=== PATIENT | female | born 1940 | race Caucasian/White ===

== ENCOUNTER 2017-04-06 16:22 | Emergency (ER) | payer OTHER, MEDICARE ==
[2017-04-06 16:28] VITALS: BP 139/89; PULSE 77; TEMP 98.4; BMI 31.6
[2017-04-06] MEDS ORDERED: predniSONE 20 MG TABLET (UD) PO ONE (17:13)
--- NOTE | 2017-04-06 17:13 | PDOC ---
History of Present Illness - General History Source: Patient - History of Present Illness Timing/Duration: other Associated Symptoms: reports: headaches. denies: cough, fever/chills, nausea/ vomiting, seizure, shortness of breath, syncope <Carson Tavera - Last Filed: 04/06/17 18:57> <Jean-Claude Victoria - Last Filed: 04/06/17 20:11> - General Chief Complaint: Weakness Stated Complaint: PCP SENT Time Seen by Provider: 04/06/17 16:43 Past History - Past Medical History Anemia: No Asthma: No Cancer: No Cardiac Disorders: Yes CVA: No COPD: No CHF: No Dementia: No Diabetes: No GI Disorders: Yes (UPPER GI BLEED-ANTRAL ULCER) Disorders: No HTN: Yes Hypercholesterolemia: Yes Liver Disease: Yes (cirrhosis non alcoholic) Seizures: No Thyroid Disease: No Other medical history: shingles. - Surgical History Abdominal Surgery: No Appendectomy: No Cardiac Surgery: No Cholecystectomy: No Lung Surgery: No Neurologic Surgery: No Orthopedic Surgery: No - Psycho/Social/Smoking Cessation Hx Anxiety: No Suicidal Ideation: No Smoking History: Never smoked Have you smoked in the past 12 months: No Hx Alcohol Use: No Drug/Substance Use Hx: No Substance Use Type: None Hx Substance Use Treatment: No <Carson Tavera - Last Filed: 04/06/17 18:57> <Jean-Claude Victoria - Last Filed: 04/06/17 20:11> - Past Medical History Allergies/Adverse Reactions: Allergies Allergy/AdvReac Type Severity Reaction Status Date / Time No Known Allergies Allergy Verified 04/06/17 16:28 Home Medications: Ambulatory Orders Hydrochlorothiazide [Hctz -] 1 tab PO DAILY 06/15/14 Lisinopril [Prinivil] 1 tab PO DAILY 06/15/14 Metoprolol Succinate [Toprol XL -] 1 tab PO DAILY 06/15/14 Paroxetine HCl [Paxil -] 10 mg PO DAILY 06/15/14 Simvastatin [Zocor -] 1 tab PO Q2D 06/15/14 Aiwis-E-Jvbslsurfasan [Beano] 1 unit PO PRN PRN 10/05/14 Polyethylene Glycol 3350 [Miralax 119 gm Btl -] 17 gm PO DAILY 10/05/14 Magnesium Oxide [Magnesium] 800 mg PO DAILY 04/06/17 Omeprazole 40 mg PO BID 04/06/17 Potassium Chloride [Klor-Con 10] 20 meq PO DAILY 04/06/17 Prednisone [Deltasone -] 10 mg PO ASDIR #16 tablet 04/06/17 Sucralfate [Carafate -] 1 gm PO BID 04/06/17 Valacyclovir HCl [Valtrex] 1,000 mg PO TID 04/06/17 Review of Systems - Review of Systems Constitutional: No: Chills, Fever HEENTM: No: Blurred Vision Respiratory: No: Cough, Shortness of Breath Cardiac (ROS): No: Chest Pain, Lightheadedness Neurological: Yes: Headache. No: Dizziness <Carson Tavera - Last Filed: 04/06/17 18:57> *Physical Exam - Vital Signs Last Vital Signs Temp Pulse Resp BP Pulse Ox 98.4 F 77 20 139/89 96 04/06/17 16:23 04/06/17 16:04/06/17 16:04/06/17 16:04/06/17 16:23 - Physical Exam General Appearance: Yes: Appropriately Dressed. No: Apparent Distress HEENT: positive: Normal Voice, Other (no conjunctival erythema or discharge). negative: Scleral Icterus (R), Scleral Icterus (L) Neck: positive: Supple Respiratory/Chest: negative: Respiratory Distress Integumentary: positive: Dry, Warm Neurologic: positive: Fully Oriented, Alert, Normal Mood/Affect, Motor Strength 5/5 (no nystagmus, L[place] intact, no drift, no ataxia), Finger to Nose, Other ( unable to raise R eyebrow w/ slight difficulty closing R eye or raising R corner of mouth, c/w [place], sensation and strength grossly intact, no ear canal lesions). negative: Disoriented <Carson Tavera - Last Filed: 04/06/17 18:57> - Vital Signs Last Vital Signs Temp Pulse Resp BP Pulse Ox 98.4 F 77 20 139/89 98 04/06/17 16:23 04/06/17 16:23 04/06/17 16:23 04/06/17 16:23 04/06/17 17:20 <Jean-Claude Victoria - Last Filed: 04/06/17 20:11> ED Treatment Course - LABORATORY CBC & Chemistry Diagram: 04/06/17 17:30 04/06/17 17:30 - RADIOLOGY Radiology Studies Ordered: Category Date Time Status HEAD CT WITHOUT CONTRAST [CT] Stat CT Scan 04/06/17 17:08 Ordered <Carson Tavera - Last Filed: 04/06/17 18:57> - LABORATORY CBC & Chemistry Diagram: 04/06/17 17:30 04/06/17 17:30 - ADDITIONAL ORDERS Additional order review: Laboratory Results 04/06/17 17:30 Sodium 141 Potassium 3.9 Chloride 104 Carbon Dioxide 27 Anion Gap 10 BUN 23 H D Creatinine 0.9 Creat Clearance w eGFR > 60 Random Glucose 103 Calcium 9.1 Total Bilirubin 0.6 D AST 45 H D ALT 41 D Alkaline Phosphatase 88 Total Protein 7.2 Albumin 3.7 04/06/17 17:30 RBC 4.48 MCV 92.3 MCHC 34.6 RDW 14.1 MPV 9.3 Neutrophils % 60.6 Lymphocytes % 25.9 Monocytes % 9.8 Eosinophils % 2.8 Basophils % 0.9 - Medications Given in the ED: ED Medications Discontinued Medications Generic Name Dose Route Start Last Admin Trade Name Freq PRN Reason Stop Dose Admin Prednisone 60 mg 04/06/17 17:13 04/06/17 17:35 Deltasone - PO 04/06/17 17:14 60 mg ONCE ONE Administration <Jean-Claude Victoria - Last Filed: 04/06/17 20:11> Medical Decision Making - Medical Decision Making 04/06/17 17:08 76 yo F yo F, cirrhosis (non-alcoholic), HLD, currently on 2nd course of valtrex for shingles to R side of face 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 States rash is healing but several days ago noticed facial asymmetry and sent to ED for evaluation. No eye pain, conjunctival erythema, tearing, discharge or photophobia See exam [place] Palsy m/l 2/2 shingles, on valtrex w/ healed facial rash, no lesion to ear canal, no e/o corneal involvement at this time -[facility] at request of PMD, though very low suspicion for CVA at this time -will give first dose prednisone in ED and discuss dispo w/ referring PMD (Dr Pilar Richey) 04/06/17 17:23 04/06/17 17:28 04/06/17 18:24 Labs wnl. CTH pending. Anticipate discharge with prednisone 60mg daily x 5 days , then taper by 10mg daily for a total length of 10 days. Already on valtrex. Will also need eye care such as artificial tears Q4H while awake and then ointment formulation at night w/ protective glasses or night patch. Should also be referred to neuro for continued evaluation 04/06/17 18:31 04/06/17 18:57 Case signed out to CHLOE Victoria pending CT and discussion w/ Pilar Richey who has not yet returned page <Carson Tavera - Last Filed: 04/06/17 18:57> - Medical Decision Making 04/06/17 20:09 Spoke with Lou Concepcion who would like patient to come in to office on Saturday. Patient should also start tapered dose of prednisone. CT- Brain: Neg. 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 Richey on Saturday morning. She would like for you to call her at 9am prior to coming to office. Take medications as prescribed. Continue your current medications as prescribed. Return if symptoms worsen or any concerns for further evaluation. Print Language: SIN[place]
[2017-04-06] MEDS ORDERED: predniSONE 20 MG TABLET (UD) ONE (17:24)
[2017-04-06 17:44] LABS: BASOPHIL 0.9 % (0-2.0); EOSINOPHIL 2.8 % (0-4.5); MCH 31.9 pg (25.7-33.7); MCHC 34.6 g/dl (32.0-36.0); MEAN CELL VOLUME 92.3 fl (80-96); MEAN PLT VOLUME 9.3 fl (7.5-11.1); NEUTROPHILS 60.6 % (42.8-82.8); PLATELET COUNT 121 K/MM3 (134-434); RDW 14.1 % (11.6-15.6); WHITE BLOOD COUNT 8.4 K/mm3 (4.0-10.0)
[2017-04-06 18:10] LABS: ALBUMIN 3.7 g/dl (3.4-5.0); ALK PHOS 88 U/L (45-117); ANION GAP 10 (8-16); BILIRUBIN,TOTAL 0.6 mg/dL (0.2-1.0); CALCIUM 9.1 mg/dL (8.5-10.1); CO2 27 mmol/L (21-32); CREATININE 0.9 mg/dL (0.55-1.02); GLUCOSE,RANDOM 103 mg/dL (74-106); SGOT/AST 45 U/L (15-37); SGPT/ALT 41 U/L (12-78); TOT PROT 7.2 g/dl (6.4-8.2)
== END 2017-04-06 20:43 | disposition home or self-care (01) ==
LOC: JER 16:22
DX: B02.21 Postherpetic geniculate ganglionitis (principal); E78.00 Pure hypercholesterolemia, unspecified; K76.89 Other specified diseases of liver
CPT/HCPCS: 36415; 70450-TC; 80053; 85025; 99282-25

== ENCOUNTER 2020-07-22 12:01 | Inpatient (IN) | payer OTHER, MEDICARE ==
[2020-07-22] MEDS ORDERED: DEXAMETHASONE SOD PHOSPHATE 10 MG/1 ML VIAL ONE (12:37)
[2020-07-22] MEDS ORDERED: DEXAMETHASONE SOD PHOSPHATE 10 MG/1 ML VIAL IVPUSH ONE (12:40)
[2020-07-22] MEDS ORDERED: SODIUM CHLORIDE 0.9% 500 ML INFUS.BAG IV ONE (12:41)
[2020-07-22] MEDS ORDERED: guaiFENesin 200 MG/10 ML 10 ML UNIT-DOSE CUPS PO ONE (12:41)
[2020-07-22 13:03] LABS: BASO % 0.7 % (0-2.0); EOS % 1.6 % (0-4.5); HEMATOCRIT 35.7 % (32.4-45.2); LYMPH % 21.6 % (8-40); MCH 29.7 pg (25.7-33.7); MCHC 33.5 g/dl (32.0-36.0); MEAN CELL VOLUME 88.6 fl (80-96); MEAN PLT VOLUME 11.8 fl (7.5-11.1); MONO % 17.6 % (3.8-10.2); NEUT % 58.5 % (42.8-82.8); PLATELET COUNT 54 K/MM3 (134-434); RBC 4.03 M/mm3 (3.60-5.2); RDW 14.1 % (11.6-15.6); WHITE BLOOD COUNT 4.6 K/mm3 (4.0-10.0)
[2020-07-22 13:05] LABS: VENOUS BASE EXCESS -1.5 mmol/L (-2-2); VENOUS PCO2 34.8 mmHg (38-52); VENOUS PH 7.423 (7.310-7.410)
[2020-07-22] MEDS ORDERED: guaiFENesin 200 MG/10 ML 10 ML UNIT-DOSE CUPS ONE (13:07)
[2020-07-22 13:10] LABS: INR 1.23 (0.83-1.09)
[2020-07-22 13:12] LABS: ACTIVATED PTT 32.9 SECONDS (25.2-36.5)
[2020-07-22 13:26] LABS: CHLORIDE 105 mmol/L (98-107); SODIUM 137 mmol/L (136-145)
[2020-07-22 13:28] LABS: CALCIUM 7.2 mg/dL (8.5-10.1)
[2020-07-22 13:29] LABS: ALBUMIN 3.3 g/dl (3.4-5.0); ANION GAP 10 MMOL/L (8-16); BLOOD UREA NITROGEN 33.9 mg/dL (7-18); CO2 23 mmol/L (21-32); GLUCOSE,RANDOM 92 mg/dL (74-106)
[2020-07-22 13:32] LABS: BILIRUBIN,TOTAL 1.3 mg/dL (0.2-1); CREATININE 1.6 mg/dL (0.55-1.3); LDH 500 U/L (84-246); SGOT/AST 84 U/L (15-37); SGPT/ALT 26 U/L (13-61); TOT PROT 6.9 g/dl (6.4-8.2)
[2020-07-22 13:35] LABS: ALK PHOS 67 U/L (45-117)
[2020-07-22 13:37] LABS: N-TERMINAL BNP 338.4 pg/ml (5-450)
[2020-07-22 14:39] LABS: PLATELET ESTIMATE DECREASED
[2020-07-22] MEDS ORDERED: SUCRALFATE 1 GM TABLET (FP) ONE (17:49)
[2020-07-22] MEDS: SUCRALFATE 1 GM TABLET (FP) PO SCH (17:51)
[2020-07-22] MEDS ORDERED: methylPREDNISolone NA SUCC 40 MG/1 ML VIAL ONE (18:03)
[2020-07-22] MEDS: methylPREDNISolone NA SUCC 40 MG/1 ML VIAL IVPUSH SCH (18:07)
[2020-07-22] MEDS ORDERED: HEPARIN NA (PORCINE) 5,000 UNITS/ML 1ML VIAL SQ SCH (22:00)
[2020-07-23] MEDS: methylPREDNISolone NA SUCC 40 MG/1 ML VIAL IVPUSH SCH ×2 (01:42→20:00)
[2020-07-23 02:41] VITALS: BMI 31.6
[2020-07-23] MEDS: SUCRALFATE 1 GM TABLET (FP) PO SCH ×2 (06:27→16:07)
[2020-07-23 06:37] LABS: BASO % 0.2 % (0-2.0); HEMATOCRIT 36.6 % (32.4-45.2); HEMOGLOBIN 12.3 GM/dL (10.7-15.3); LYMPH % 26.3 % (8-40); MCH 30.2 pg (25.7-33.7); MCHC 33.7 g/dl (32.0-36.0); MEAN CELL VOLUME 89.6 fl (80-96); MEAN PLT VOLUME 11.3 fl (7.5-11.1); MONO % 7.4 % (3.8-10.2); NEUT % 66.1 % (42.8-82.8); PLATELET COUNT 40 K/MM3 (134-434); RBC 4.08 M/mm3 (3.60-5.2); RDW 14.3 % (11.6-15.6); WHITE BLOOD COUNT 2.6 K/mm3 (4.0-10.0)
[2020-07-23 07:06] LABS: ALBUMIN 3.2 g/dl (3.4-5.0)
[2020-07-23 07:08] LABS: BILIRUBIN,DIRECT 0.4 mg/dL (0.0-0.2)
[2020-07-23 07:10] LABS: BILIRUBIN,TOTAL 1.1 mg/dL (0.2-1); TOT PROT 6.8 g/dl (6.4-8.2)
[2020-07-23] MEDS ORDERED: FUROSEMIDE 40 MG TABLET (FP) PO SCH (10:00)
[2020-07-23] MEDS ORDERED: SPIRONOLACTONE 25 MG TABLET PO SCH (10:00)
[2020-07-23] MEDS ORDERED: METOPROLOL TARTRATE 50 MG TABLET (FP) PO SCH (10:00)
[2020-07-23] MEDS: PARoxetine HCL 10 MG TABLET PO SCH (10:50)
[2020-07-23] MEDS: POTASSIUM CHLORIDE TABS 20 MEQ TABLET.ER (FP) PO SCH (10:50)
[2020-07-23] MEDS: PANTOPRAZOLE 40 MG TABLET PO SCH (10:50)
[2020-07-23 12:06] LABS: CALCIUM 7.3 mg/dL (8.5-10.1)
[2020-07-23 12:07] LABS: BLOOD UREA NITROGEN 46.9 mg/dL (7-18)
[2020-07-23 12:10] LABS: CREATININE 1.9 mg/dL (0.55-1.3)
[2020-07-23] MEDS: DEXAMETHASONE SOD PHOSPHATE 4 MG/1 ML VIAL IVPUSH SCH (13:00)
[2020-07-23] MEDS: CODEINE SO4 30 MG TABLET PO PRN ×2 (16:08→21:08)
[2020-07-24] MEDS: SUCRALFATE 1 GM TABLET (FP) PO SCH ×2 (06:06→15:43)
[2020-07-24] MEDS: CODEINE SO4 30 MG TABLET PO PRN ×2 (06:07→21:27)
[2020-07-24 08:04] LABS: ALBUMIN 2.9 g/dl (3.4-5.0); BLOOD UREA NITROGEN 53.7 mg/dL (7-18); CALCIUM 7.4 mg/dL (8.5-10.1)
[2020-07-24 08:07] LABS: CREATININE 1.6 mg/dL (0.55-1.3)
[2020-07-24 08:09] LABS: BILIRUBIN,TOTAL 0.9 mg/dL (0.2-1); TOT PROT 6.3 g/dl (6.4-8.2)
[2020-07-24 08:20] LABS: BASO % 0.1 % (0-2.0); EOS % 0.1 % (0-4.5); HEMATOCRIT 34.4 % (32.4-45.2); HEMOGLOBIN 11.5 GM/dL (10.7-15.3); LYMPH % 8.5 % (8-40); MCH 29.8 pg (25.7-33.7); MCHC 33.5 g/dl (32.0-36.0); MEAN CELL VOLUME 89.1 fl (80-96); MEAN PLT VOLUME 11.7 fl (7.5-11.1); MONO % 4.6 % (3.8-10.2); NEUT % 86.7 % (42.8-82.8); PLATELET COUNT 52 K/MM3 (134-434); RBC 3.86 M/mm3 (3.60-5.2); RDW 14.1 % (11.6-15.6); WHITE BLOOD COUNT 8.5 K/mm3 (4.0-10.0)
[2020-07-24] MEDS: DEXAMETHASONE SOD PHOSPHATE 4 MG/1 ML VIAL IVPUSH SCH (10:20)
[2020-07-24] MEDS: POTASSIUM CHLORIDE TABS 20 MEQ TABLET.ER (FP) PO SCH (10:20)
[2020-07-24] MEDS: PANTOPRAZOLE 40 MG TABLET PO SCH (10:36)
[2020-07-24] MEDS: PARoxetine HCL 10 MG TABLET PO SCH (10:36)
[2020-07-24] MEDS: LACTATED RINGERS SOLUTION 1,000 ML/1,000 ML INFUS.BAG IV SCH ×2 (15:43→19:16)
[2020-07-24 22:11] LABS: EPI CELLS 21 /uL (0-25.1); HYALINE CASTS 2 /uL (0-3.1); PH,URINE 5.5 (5.0-8.0); URINE APPEARANCE CLOUDY; URINE BACTERIA 1295 /uL (0-1359); URINE BILIRUBIN NEGATIVE (NEGATIVE); URINE COLOR YELLOW; URINE GLUCOSE (UA) NEGATIVE (NEGATIVE); URINE KETONE NEGATIVE (NEGATIVE); URINE LEUK ESTERASE 2+ (NEGATIVE); URINE NITRITE NEGATIVE (NEGATIVE); URINE PROTEIN NEGATIVE (NEGATIVE); URINE RBC 9 /uL (0-23.9); URINE UROBILINOGEN 0.2 mg/dL (0.2-1.0); URINE WBC 166 /uL (0-25.8)
[2020-07-25] MEDS: CODEINE SO4 30 MG TABLET PO PRN ×2 (06:04→16:31)
[2020-07-25] MEDS: SUCRALFATE 1 GM TABLET (FP) PO SCH ×2 (06:04→15:30)
[2020-07-25 07:23] LABS: BASO % 0.2 % (0-2.0); HEMATOCRIT 32.9 % (32.4-45.2); HEMOGLOBIN 10.9 GM/dL (10.7-15.3); LYMPH % 5.2 % (8-40); MCH 29.7 pg (25.7-33.7); MCHC 33.2 g/dl (32.0-36.0); MEAN CELL VOLUME 89.4 fl (80-96); MEAN PLT VOLUME 11.5 fl (7.5-11.1); NEUT % 88.6 % (42.8-82.8); PLATELET COUNT 54 K/MM3 (134-434); RBC 3.68 M/mm3 (3.60-5.2); RDW 14.3 % (11.6-15.6)
[2020-07-25 07:34] LABS: CALCIUM 7.4 mg/dL (8.5-10.1)
[2020-07-25 07:35] LABS: ALBUMIN 2.9 g/dl (3.4-5.0); BLOOD UREA NITROGEN 44.6 mg/dL (7-18)
[2020-07-25 07:38] LABS: CREATININE 1.3 mg/dL (0.55-1.3)
[2020-07-25 07:39] LABS: TOT PROT 6.1 g/dl (6.4-8.2)
[2020-07-25] MEDS: PARoxetine HCL 10 MG TABLET PO SCH (10:10)
[2020-07-25] MEDS: POTASSIUM CHLORIDE TABS 20 MEQ TABLET.ER (FP) PO SCH (10:10)
[2020-07-25] MEDS: PANTOPRAZOLE 40 MG TABLET PO SCH (10:10)
[2020-07-25] MEDS: DEXAMETHASONE SOD PHOSPHATE 4 MG/1 ML VIAL IVPUSH SCH (10:11)
[2020-07-25] MEDS: LACTATED RINGERS SOLUTION 1,000 ML/1,000 ML INFUS.BAG IV SCH (13:21)
[2020-07-26] MEDS: LACTATED RINGERS SOLUTION 1,000 ML/1,000 ML INFUS.BAG IV SCH ×2 (02:43→18:12)
[2020-07-26] MEDS ORDERED: PT OWN MED DRAWER 7, Y5N ONE (04:53)
[2020-07-26] MEDS: SUCRALFATE 1 GM TABLET (FP) PO SCH ×2 (06:09→16:51)
[2020-07-26] MEDS: CODEINE SO4 30 MG TABLET PO PRN ×2 (06:09→21:47)
[2020-07-26 07:46] LABS: HEMATOCRIT 32.2 % (32.4-45.2); LYMPH % 9.6 % (8-40); MCH 30.2 pg (25.7-33.7); MCHC 34.1 g/dl (32.0-36.0); MEAN CELL VOLUME 88.8 fl (80-96); MEAN PLT VOLUME 10.5 fl (7.5-11.1); MONO % 7.1 % (3.8-10.2); NEUT % 83.3 % (42.8-82.8); PLATELET COUNT 56 K/MM3 (134-434); RBC 3.63 M/mm3 (3.60-5.2); RDW 13.9 % (11.6-15.6); WHITE BLOOD COUNT 4.6 K/mm3 (4.0-10.0)
[2020-07-26 08:23] LABS: ALBUMIN 2.8 g/dl (3.4-5.0); BLOOD UREA NITROGEN 30.5 mg/dL (7-18); CALCIUM 7.7 mg/dL (8.5-10.1)
[2020-07-26 08:24] LABS: MAGNESIUM 1.7 mg/dL (1.8-2.4)
[2020-07-26 08:27] LABS: PHOSPHOROUS 2.1 mg/dL (2.5-4.9); TOT PROT 5.9 g/dl (6.4-8.2)
[2020-07-26 08:28] LABS: BILIRUBIN,TOTAL 0.7 mg/dL (0.2-1)
[2020-07-26] MEDS: PANTOPRAZOLE 40 MG TABLET PO SCH (10:16)
[2020-07-26] MEDS: POTASSIUM CHLORIDE TABS 20 MEQ TABLET.ER (FP) PO SCH (10:16)
[2020-07-26] MEDS: PARoxetine HCL 10 MG TABLET PO SCH (10:17)
[2020-07-26] MEDS: DEXAMETHASONE SOD PHOSPHATE 4 MG/1 ML VIAL IVPUSH SCH (10:17)
[2020-07-27] MEDS: CODEINE SO4 30 MG TABLET PO PRN ×2 (05:59→14:06)
[2020-07-27] MEDS: SUCRALFATE 1 GM TABLET (FP) PO SCH ×2 (06:03→18:29)
[2020-07-27 07:21] LABS: BASO % 0.1 % (0-2.0); HEMATOCRIT 31.6 % (32.4-45.2); HEMOGLOBIN 10.8 GM/dL (10.7-15.3); LYMPH % 9.9 % (8-40); MCH 30.2 pg (25.7-33.7); MCHC 34.1 g/dl (32.0-36.0); MEAN CELL VOLUME 88.6 fl (80-96); MEAN PLT VOLUME 10.1 fl (7.5-11.1); MONO % 9.1 % (3.8-10.2); NEUT % 80.9 % (42.8-82.8); PLATELET COUNT 56 K/MM3 (134-434); RBC 3.57 M/mm3 (3.60-5.2); RDW 13.9 % (11.6-15.6); WHITE BLOOD COUNT 4.2 K/mm3 (4.0-10.0)
[2020-07-27 07:43] LABS: CALCIUM 7.9 mg/dL (8.5-10.1)
[2020-07-27 07:44] LABS: ALBUMIN 2.6 g/dl (3.4-5.0); BLOOD UREA NITROGEN 26.2 mg/dL (7-18)
[2020-07-27 07:49] LABS: TOT PROT 5.6 g/dl (6.4-8.2)
[2020-07-27] MEDS: PANTOPRAZOLE 40 MG TABLET PO SCH (10:06)
[2020-07-27] MEDS: DEXAMETHASONE SOD PHOSPHATE 4 MG/1 ML VIAL IVPUSH SCH (10:06)
[2020-07-27] MEDS: PARoxetine HCL 10 MG TABLET PO SCH (10:06)
[2020-07-27] MEDS: POTASSIUM CHLORIDE TABS 20 MEQ TABLET.ER (FP) PO SCH (10:06)
[2020-07-27] MEDS ORDERED: PT OWN MED DRAWER 7, Y5N ONE (22:52)
[2020-07-28] MEDS: CODEINE SO4 30 MG TABLET PO PRN ×4 (01:06→22:29)
[2020-07-28] MEDS ORDERED: PT OWN MED DRAWER 7, Y5N ONE (05:59)
[2020-07-28 08:17] LABS: HEMATOCRIT 33.9 % (32.4-45.2); HEMOGLOBIN 11.2 GM/dL (10.7-15.3); MCH 29.5 pg (25.7-33.7); MCHC 32.9 g/dl (32.0-36.0); MEAN CELL VOLUME 89.7 fl (80-96); RBC 3.78 M/mm3 (3.60-5.2); WHITE BLOOD COUNT 5.3 K/mm3 (4.0-10.0)
[2020-07-28 08:18] LABS: BASO % 0.2 % (0-2.0); EOS % 0.1 % (0-4.5); LYMPH % 9.9 % (8-40); MEAN PLT VOLUME 9.8 fl (7.5-11.1); MONO % 11.4 % (3.8-10.2); NEUT % 78.4 % (42.8-82.8); PLATELET COUNT 70 K/MM3 (134-434); RDW 14.4 % (11.6-15.6)
[2020-07-28 08:20] LABS: CALCIUM 8.3 mg/dL (8.5-10.1)
[2020-07-28 08:24] LABS: CREATININE 0.9 mg/dL (0.55-1.3)
[2020-07-28] MEDS: SUCRALFATE 1 GM TABLET (FP) PO SCH ×2 (09:26→16:55)
[2020-07-28] MEDS: PARoxetine HCL 10 MG TABLET PO SCH (10:05)
[2020-07-28] MEDS: DEXAMETHASONE SOD PHOSPHATE 4 MG/1 ML VIAL IVPUSH SCH (10:05)
[2020-07-28] MEDS: POTASSIUM CHLORIDE TABS 20 MEQ TABLET.ER (FP) PO SCH (10:05)
[2020-07-28] MEDS: PANTOPRAZOLE 40 MG TABLET PO SCH (10:05)
[2020-07-28] MEDS ORDERED: POLYETHYLENE GLYCOL 3350 119 GM BTL PO PRN (12:43)
[2020-07-28] MEDS ORDERED: ALBUTEROL SO4 HFA INHALER IH PRN (12:43)
[2020-07-28] MEDS: HEPARIN NA (PORCINE) 5,000 UNITS/ML 1ML VIAL SQ SCH (22:29)
[2020-07-29] MEDS ORDERED: PT OWN MED DRAWER 7, Y5N ONE (06:22)
[2020-07-29] MEDS: SUCRALFATE 1 GM TABLET (FP) PO SCH ×2 (06:23→17:08)
[2020-07-29 08:06] LABS: EOS % 0.1 % (0-4.5); HEMATOCRIT 34.7 % (32.4-45.2); HEMOGLOBIN 11.9 GM/dL (10.7-15.3); LYMPH % 9.5 % (8-40); MCH 30.1 pg (25.7-33.7); MCHC 34.4 g/dl (32.0-36.0); MEAN CELL VOLUME 87.4 fl (80-96); MEAN PLT VOLUME 9.4 fl (7.5-11.1); MONO % 11.2 % (3.8-10.2); NEUT % 79.2 % (42.8-82.8); PLATELET COUNT 73 K/MM3 (134-434); RBC 3.97 M/mm3 (3.60-5.2); RDW 13.9 % (11.6-15.6)
[2020-07-29 08:24] LABS: ALBUMIN 2.6 g/dl (3.4-5.0); BLOOD UREA NITROGEN 27.5 mg/dL (7-18); CALCIUM 8.6 mg/dL (8.5-10.1)
[2020-07-29 08:29] LABS: BILIRUBIN,TOTAL 0.7 mg/dL (0.2-1)
[2020-07-29] MEDS: DEXAMETHASONE SOD PHOSPHATE 4 MG/1 ML VIAL IVPUSH SCH (09:45)
[2020-07-29] MEDS: CODEINE SO4 30 MG TABLET PO PRN ×2 (09:46→21:58)
[2020-07-29] MEDS: HEPARIN NA (PORCINE) 5,000 UNITS/ML 1ML VIAL SQ SCH ×2 (09:46→21:05)
[2020-07-29] MEDS: POTASSIUM CHLORIDE TABS 20 MEQ TABLET.ER (FP) PO SCH (09:46)
[2020-07-29] MEDS: PANTOPRAZOLE 40 MG TABLET PO SCH (09:46)
[2020-07-29] MEDS: PARoxetine HCL 10 MG TABLET PO SCH (09:47)
[2020-07-29] MEDS: LISINOPRIL 20 MG TABLET PO SCH (17:08)
[2020-07-29] MEDS: guaiFENesin 200 MG/10 ML 10 ML UNIT-DOSE CUPS PO PRN (17:20)
[2020-07-30] MEDS: guaiFENesin 200 MG/10 ML 10 ML UNIT-DOSE CUPS PO PRN ×3 (05:56→21:16)
[2020-07-30] MEDS: SUCRALFATE 1 GM TABLET (FP) PO SCH ×2 (06:01→17:07)
[2020-07-30 08:28] LABS: BASO % 0.1 % (0-2.0); EOS % 0.1 % (0-4.5); HEMATOCRIT 33.4 % (32.4-45.2); HEMOGLOBIN 11.1 GM/dL (10.7-15.3); LYMPH % 10.5 % (8-40); MCH 29.5 pg (25.7-33.7); MCHC 33.4 g/dl (32.0-36.0); MEAN CELL VOLUME 88.5 fl (80-96); MEAN PLT VOLUME 9.9 fl (7.5-11.1); MONO % 10.8 % (3.8-10.2); NEUT % 78.5 % (42.8-82.8); PLATELET COUNT 73 K/MM3 (134-434); RBC 3.77 M/mm3 (3.60-5.2); WHITE BLOOD COUNT 4.8 K/mm3 (4.0-10.0)
[2020-07-30 08:41] LABS: CALCIUM 8.5 mg/dL (8.5-10.1)
[2020-07-30 08:42] LABS: BLOOD UREA NITROGEN 26.2 mg/dL (7-18)
[2020-07-30] MEDS: PANTOPRAZOLE 40 MG TABLET PO SCH (09:44)
[2020-07-30] MEDS: PARoxetine HCL 10 MG TABLET PO SCH (09:44)
[2020-07-30] MEDS: LISINOPRIL 20 MG TABLET PO SCH (09:44)
[2020-07-30] MEDS: HEPARIN NA (PORCINE) 5,000 UNITS/ML 1ML VIAL SQ SCH ×2 (09:44→21:15)
[2020-07-30] MEDS: DEXAMETHASONE SOD PHOSPHATE 4 MG/1 ML VIAL IVPUSH SCH (09:44)
[2020-07-30] MEDS: CODEINE SO4 30 MG TABLET PO PRN ×2 (09:45→17:53)
[2020-07-30] MEDS: metoPROLOL SUCCINATE 25 MG TAB.SR.24H (FP) PO SCH (09:47)
[2020-07-30] MEDS: SPIRONOLACTONE 25 MG TABLET PO SCH (09:48)
[2020-07-30 10:55] LABS: ANISOCYTOSIS 0; HELMET CELLS 0; HOWELL-JOLLY BODIES 0; MACROCYTOSIS 0; OVALOCYTE 0; PLATELET ESTIMATE DECREASED; ROULEAU 0; SICKELED CELLS 0; TARGET CELLS 0; TEAR DROP CELLS 0; TOXIC GRANULATION 0
[2020-07-31] MEDS ORDERED: PT OWN MED DRAWER 7, Y5N ONE (05:50)
[2020-07-31] MEDS: SUCRALFATE 1 GM TABLET (FP) PO SCH ×2 (06:09→17:03)
[2020-07-31 09:09] LABS: BASO % 0.2 % (0-2.0); EOS % 0.2 % (0-4.5); HEMATOCRIT 34.2 % (32.4-45.2); HEMOGLOBIN 11.5 GM/dL (10.7-15.3); LYMPH % 13.2 % (8-40); MCH 29.9 pg (25.7-33.7); MCHC 33.8 g/dl (32.0-36.0); MEAN CELL VOLUME 88.6 fl (80-96); MEAN PLT VOLUME 9.4 fl (7.5-11.1); MONO % 8.4 % (3.8-10.2); PLATELET COUNT 75 K/MM3 (134-434); RBC 3.86 M/mm3 (3.60-5.2); WHITE BLOOD COUNT 6.1 K/mm3 (4.0-10.0)
[2020-07-31 09:12] LABS: CALCIUM 8.3 mg/dL (8.5-10.1)
[2020-07-31 09:13] LABS: ALBUMIN 2.5 g/dl (3.4-5.0); BLOOD UREA NITROGEN 29.5 mg/dL (7-18)
[2020-07-31 09:16] LABS: CREATININE 0.9 mg/dL (0.55-1.3)
[2020-07-31 09:18] LABS: TOT PROT 5.9 g/dl (6.4-8.2)
[2020-07-31] MEDS: DEXAMETHASONE SOD PHOSPHATE 4 MG/1 ML VIAL IVPUSH SCH (09:37)
[2020-07-31] MEDS: CODEINE SO4 30 MG TABLET PO PRN ×2 (09:37→22:16)
[2020-07-31] MEDS: PANTOPRAZOLE 40 MG TABLET PO SCH (09:38)
[2020-07-31] MEDS: HEPARIN NA (PORCINE) 5,000 UNITS/ML 1ML VIAL SQ SCH ×2 (09:38→22:16)
[2020-07-31] MEDS: PARoxetine HCL 10 MG TABLET PO SCH (09:38)
[2020-07-31] MEDS: SPIRONOLACTONE 25 MG TABLET PO SCH (09:38)
[2020-07-31] MEDS: LISINOPRIL 20 MG TABLET PO SCH (09:38)
[2020-07-31] MEDS: metoPROLOL SUCCINATE 25 MG TAB.SR.24H (FP) PO SCH (09:38)
[2020-07-31 10:15] LABS: ANISOCYTOSIS 0; MACROCYTOSIS 0; PLATELET ESTIMATE DECREASED
[2020-07-31] MEDS: guaiFENesin 200 MG/10 ML 10 ML UNIT-DOSE CUPS PO PRN (22:16)
[2020-08-01] MEDS ORDERED: PT OWN MED DRAWER 7, Y5N ONE (06:01)
[2020-08-01] MEDS: SUCRALFATE 1 GM TABLET (FP) PO SCH (06:14)
[2020-08-01 07:02] VITALS: BP 153/71; PULSE 60; TEMP 97.5
[2020-08-01] MEDS: HEPARIN NA (PORCINE) 5,000 UNITS/ML 1ML VIAL SQ SCH (11:00)
[2020-08-01] MEDS: SPIRONOLACTONE 25 MG TABLET PO SCH (11:01)
[2020-08-01] MEDS: PARoxetine HCL 10 MG TABLET PO SCH (11:01)
[2020-08-01] MEDS: metoPROLOL SUCCINATE 25 MG TAB.SR.24H (FP) PO SCH (11:01)
[2020-08-01] MEDS: DEXAMETHASONE SOD PHOSPHATE 4 MG/1 ML VIAL IVPUSH SCH (11:01)
[2020-08-01] MEDS: LISINOPRIL 20 MG TABLET PO SCH (11:01)
[2020-08-01] MEDS: PANTOPRAZOLE 40 MG TABLET PO SCH (11:01)
== END 2020-08-01 16:40 | DRG 177 ==
LOC: JER 12:01 → JERBED 12:45 → J7W 23:05
PROVIDERS: ADMIT Internal Medicine; ATTEND Internal Medicine
PROC: XW13325 Transfusion of Convalescent Plasma (Nonautologous) into Peripheral Vein, Percutaneous Approach, New Technology Group 5 (ICD-10-PCS; principal; 2020-07-23)
DX: U07.1 COVID-19 (principal); J96.02 Acute respiratory failure with hypercapnia; J12.89 Other viral pneumonia; J96.01 Acute respiratory failure with hypoxia; N17.9 Acute kidney failure, unspecified; I11.0 Hypertensive heart disease with heart failure; I50.9 Heart failure, unspecified; E78.5 Hyperlipidemia, unspecified; E86.0 Dehydration; K74.60 Unspecified cirrhosis of liver; D69.6 Thrombocytopenia, unspecified; E86.1 Hypovolemia; K75.81 Nonalcoholic steatohepatitis (NASH)
CPT/HCPCS: 36415; 36430; 71045-TC-FY; 80048; 80053; 80076; 81003; 82728; 82803; 83605; 83615; 83735; 83880; 84100; 84484; 85025; 85379; 85610; 85730; 86140; 86850; 86900; 86901; 87040; 87804; 93005; 93010; 94761; 97116-GP; 97161-GP; 99285-25; C9803; J1100; J1644; P9017; U0003

== ENCOUNTER 2020-11-15 09:08 | Inpatient (IN) | payer OTHER, MEDICARE ==
[2020-11-15] MEDS ORDERED: LIDOCAINE 5% TOPICAL PATCH TP ONE (10:16)
[2020-11-15] MEDS ORDERED: LIDOCAINE 5% TOPICAL PATCH ONE (10:36)
[2020-11-15] MEDS ORDERED: ALBUTEROL SO4 HFA INHALER IH PRN (11:46)
[2020-11-15] MEDS ORDERED: POLYETHYLENE GLYCOL 3350 119 GM BTL PO PRN (11:46)
[2020-11-15 12:36] LABS: BASO % 0.4 % (0-2.0); EOS % 0.9 % (0-4.5); HEMATOCRIT 31.4 % (32.4-45.2); HEMOGLOBIN 10.3 GM/dL (10.7-15.3); LYMPH % 15.9 % (8-40); MCHC 32.7 g/dl (32.0-36.0); MEAN CELL VOLUME 85.6 fl (80-96); MEAN PLT VOLUME 9.5 fl (7.5-11.1); MONO % 10.4 % (3.8-10.2); NEUT % 72.4 % (42.8-82.8); PLATELET COUNT 88 K/MM3 (134-434); RBC 3.67 M/mm3 (3.60-5.2); WHITE BLOOD COUNT 4.9 K/mm3 (4.0-10.0)
[2020-11-15 12:42] LABS: INR 1.23 (0.83-1.09)
[2020-11-15 12:44] LABS: ACTIVATED PTT 31.6 SECONDS (25.2-36.5)
[2020-11-15 12:56] LABS: CALCIUM 8.9 mg/dL (8.5-10.1)
[2020-11-15 12:57] LABS: ALBUMIN 3.2 g/dl (3.4-5.0)
[2020-11-15 13:00] LABS: CREATININE 1.2 mg/dL (0.55-1.3)
[2020-11-15 13:01] LABS: BILIRUBIN,TOTAL 1.3 mg/dL (0.2-1)
[2020-11-15 13:02] LABS: TOT PROT 6.7 g/dl (6.4-8.2)
[2020-11-15 15:55] VITALS: BMI 31.1
[2020-11-15 18:57] LABS: URINE APPEARANCE CLEAR; URINE BILIRUBIN NEGATIVE (NEGATIVE); URINE COLOR YELLOW; URINE GLUCOSE (UA) NEGATIVE (NEGATIVE); URINE KETONE NEGATIVE (NEGATIVE); URINE LEUK ESTERASE NEGATIVE (NEGATIVE); URINE NITRITE NEGATIVE (NEGATIVE); URINE PROTEIN NEGATIVE (NEGATIVE); URINE UROBILINOGEN 0.2 mg/dL (0.2-1.0)
[2020-11-15] MEDS: ACETAMINOPHEN 325 MG TABLET (FP) PO PRN (20:12)
[2020-11-15] MEDS: HEPARIN NA (PORCINE) 5,000 UNITS/ML 1ML VIAL SQ SCH (21:05)
[2020-11-15] MEDS: ATORVASTATIN CA 10 MG TABLET (FP) PO SCH (21:05)
[2020-11-15] MEDS ORDERED: LIDOCAINE PATCH REMOVAL MC SCH (22:00)
[2020-11-16] MEDS ORDERED: PT OWN MED DRAWER 7, Y5N ONE (11:01)
[2020-11-16] MEDS: SPIRONOLACTONE 25 MG TABLET PO SCH (11:06)
[2020-11-16] MEDS: LISINOPRIL 20 MG TABLET PO SCH (11:07)
[2020-11-16] MEDS: PANTOPRAZOLE 40 MG TABLET PO SCH (11:07)
[2020-11-16] MEDS: HEPARIN NA (PORCINE) 5,000 UNITS/ML 1ML VIAL SQ SCH ×2 (11:07→22:30)
[2020-11-16] MEDS: PARoxetine HCL 10 MG TABLET PO SCH (11:07)
[2020-11-16] MEDS: ACETAMINOPHEN 325 MG TABLET (FP) PO PRN ×2 (12:36→22:31)
[2020-11-16] MEDS: traMADol HCL 50 MG TABLET PO PRN (17:37)
[2020-11-16] MEDS: ATORVASTATIN CA 10 MG TABLET (FP) PO SCH (22:30)
[2020-11-17] MEDS: traMADol HCL 50 MG TABLET PO PRN ×3 (05:33→22:26)
[2020-11-17] MEDS: HEPARIN NA (PORCINE) 5,000 UNITS/ML 1ML VIAL SQ SCH ×2 (10:14→22:18)
[2020-11-17] MEDS: PARoxetine HCL 10 MG TABLET PO SCH (10:15)
[2020-11-17] MEDS: LISINOPRIL 20 MG TABLET PO SCH (10:15)
[2020-11-17] MEDS: SPIRONOLACTONE 25 MG TABLET PO SCH (10:15)
[2020-11-17] MEDS: PANTOPRAZOLE 40 MG TABLET PO SCH (10:15)
[2020-11-17] MEDS: ACETAMINOPHEN 325 MG TABLET (FP) PO PRN ×2 (10:27→19:15)
[2020-11-17] MEDS: ATORVASTATIN CA 10 MG TABLET (FP) PO SCH (22:17)
[2020-11-18] MEDS: ACETAMINOPHEN 325 MG TABLET (FP) PO PRN ×4 (01:54→21:18)
[2020-11-18] MEDS: LISINOPRIL 20 MG TABLET PO SCH (09:27)
[2020-11-18] MEDS: traMADol HCL 50 MG TABLET PO PRN ×2 (09:27→18:43)
[2020-11-18] MEDS: SPIRONOLACTONE 25 MG TABLET PO SCH (09:27)
[2020-11-18] MEDS: HEPARIN NA (PORCINE) 5,000 UNITS/ML 1ML VIAL SQ SCH ×2 (09:27→21:18)
[2020-11-18] MEDS: PANTOPRAZOLE 40 MG TABLET PO SCH (09:27)
[2020-11-18] MEDS: PARoxetine HCL 10 MG TABLET PO SCH (09:27)
[2020-11-18] MEDS: ATORVASTATIN CA 10 MG TABLET (FP) PO SCH (21:18)
[2020-11-19] MEDS: ACETAMINOPHEN 325 MG TABLET (FP) PO PRN ×2 (05:20→13:13)
[2020-11-19] MEDS: traMADol HCL 50 MG TABLET PO PRN (08:32)
[2020-11-19] MEDS: SPIRONOLACTONE 25 MG TABLET PO SCH (10:41)
[2020-11-19] MEDS: PANTOPRAZOLE 40 MG TABLET PO SCH (10:41)
[2020-11-19] MEDS: PARoxetine HCL 10 MG TABLET PO SCH (10:41)
[2020-11-19] MEDS: LISINOPRIL 20 MG TABLET PO SCH (10:41)
[2020-11-19] MEDS: HEPARIN NA (PORCINE) 5,000 UNITS/ML 1ML VIAL SQ SCH (10:42)
[2020-11-19 13:16] VITALS: PULSE 76
[2020-11-19 15:17] VITALS: BP 116/57; TEMP 98.3
== END 2020-11-19 16:37 | DRG 536 ==
LOC: JER 09:08 → JERBED 11:12 → J8W 15:20
PROVIDERS: ADMIT Internal Medicine; ATTEND Internal Medicine
DX: S32.512A Fracture of superior rim of left pubis, initial encounter for closed fracture (principal); S32.592A Other specified fracture of left pubis, initial encounter for closed fracture; S70.02XA Contusion of left hip, initial encounter; S76.012A Strain of muscle, fascia and tendon of left hip, initial encounter; E78.5 Hyperlipidemia, unspecified; K74.60 Unspecified cirrhosis of liver; I11.0 Hypertensive heart disease with heart failure; I50.9 Heart failure, unspecified; W18.30XA Fall on same level, unspecified, initial encounter; Z87.11 Personal history of peptic ulcer disease
CPT/HCPCS: 36415; 71045-TC-FY; 72192-TC; 73523-TC-FY; 80053; 81003; 85025; 85610; 85730; 87086; 93005; 93010; 97116-GP; 97162-GP; 99285-25; C9803; J1644; U0003; U0005

== ENCOUNTER 2022-08-12 09:40 | Inpatient (IN) | payer OTHER, MEDICARE ==
[2022-08-12 09:56] VITALS: BMI 26.5
[2022-08-12 11:59] LABS: INR 1.31 (0.83-1.09); PROTHROMBIN TIME (PATIENT) 15.1 SEC (9.7-13.0)
[2022-08-12 12:01] LABS: URINE APPEARANCE CLEAR; URINE BILIRUBIN NEGATIVE (NEGATIVE); URINE COLOR YELLOW; URINE GLUCOSE (UA) NEGATIVE (NEGATIVE); URINE KETONE NEGATIVE (NEGATIVE); URINE LEUK ESTERASE NEGATIVE (NEGATIVE); URINE NITRITE NEGATIVE (NEGATIVE); URINE PROTEIN NEGATIVE (NEGATIVE)
[2022-08-12 12:02] LABS: ACTIVATED PTT 31.6 SECONDS (25.2-36.5)
[2022-08-12 12:03] LABS: BASO % 1.4 % (0-2.0); EOS % 2.3 % (0-4.5); HEMATOCRIT 31.5 % (32.4-45.2); HEMOGLOBIN 10.4 GM/dL (10.7-15.3); MCH 28.1 pg (25.7-33.7); MEAN CELL VOLUME 85.1 fl (80-96); MEAN PLT VOLUME 9.2 fl (7.5-11.1); MONO % 7.5 % (3.8-10.2); NEUT % 71.8 % (42.8-82.8); PLATELET COUNT 98 10^3/uL (134-434); RDW 14.4 % (11.6-15.6)
[2022-08-12 12:10] LABS: ALBUMIN 3.5 g/dl (3.4-5.0); BLOOD UREA NITROGEN 22.9 mg/dL (7-18); CALCIUM 8.8 mg/dL (8.5-10.1); MAGNESIUM 1.6 mg/dL (1.8-2.4)
[2022-08-12 12:13] LABS: CREATININE 1.1 mg/dL (0.55-1.3)
[2022-08-12 12:15] LABS: BILIRUBIN,TOTAL 1.4 mg/dL (0.2-1); TOT PROT 7.2 g/dl (6.4-8.2)
[2022-08-12 12:18] LABS: N-TERMINAL BNP 812.5 pg/ml (5-450)
[2022-08-12] MEDS ORDERED: ACETAMINOPHEN 325 MG TABLET (FP) PO PRN (15:55)
[2022-08-12] MEDS ORDERED: ALBUTEROL SO4 HFA INHALER IH PRN (15:55)
[2022-08-12] MEDS ORDERED: POLYETHYLENE GLYCOL (HEALTHYLAX) 3350 17 GM PACKET PO PRN (15:55)
[2022-08-12] MEDS ORDERED: SUCRALFATE 1 GM TABLET (FP) ONE (18:01)
[2022-08-12] MEDS: SUCRALFATE 1 GM TABLET (FP) PO SCH (18:21)
[2022-08-12] MEDS ORDERED: HEPARIN NA (PORCINE) 5,000 UNITS/ML 1ML VIAL SQ SCH (22:00)
[2022-08-12] MEDS ORDERED: HEPARIN NA (PORCINE) 5,000 UNITS/ML 1ML VIAL ONE (23:51)
[2022-08-12] MEDS ORDERED: ATORVASTATIN CA 10 MG TABLET (FP) ONE (23:52)
[2022-08-13] MEDS ORDERED: SUCRALFATE 1 GM TABLET (FP) ONE ×2 (07:47→13:09)
[2022-08-13] MEDS: SUCRALFATE 1 GM TABLET (FP) PO SCH ×2 (07:51→17:37)
[2022-08-13] MEDS ORDERED: PANTOPRAZOLE 40 MG TABLET PO ONE (08:44)
[2022-08-13] MEDS ORDERED: PARoxetine HCL 10 MG TABLET ONE (08:44)
[2022-08-13] MEDS ORDERED: SPIRONOLACTONE 25 MG TABLET ONE (08:44)
[2022-08-13] MEDS ORDERED: HEPARIN NA (PORCINE) 5,000 UNITS/ML 1ML VIAL ONE (08:44)
[2022-08-13] MEDS: HEPARIN NA (PORCINE) 5,000 UNITS/ML 1ML VIAL SQ SCH ×3 (09:16→22:00)
[2022-08-13] MEDS: SPIRONOLACTONE 25 MG TABLET PO SCH (09:16)
[2022-08-13] MEDS: PANTOPRAZOLE 40 MG TABLET PO SCH (09:17)
[2022-08-13] MEDS: PARoxetine HCL 10 MG TABLET PO SCH (09:17)
[2022-08-13 10:07] LABS: BASO % 0.7 % (0-2.0); EOS % 4.6 % (0-4.5); HEMATOCRIT 27.7 % (32.4-45.2); LYMPH % 28.6 % (8-40); MCH 27.6 pg (25.7-33.7); MCHC 32.5 g/dl (32.0-36.0); MEAN CELL VOLUME 84.9 fl (80-96); MEAN PLT VOLUME 8.8 fl (7.5-11.1); MONO % 10.2 % (3.8-10.2); NEUT % 55.9 % (42.8-82.8); PLATELET COUNT 69 10^3/uL (134-434); RBC 3.27 M/mm3 (3.60-5.2); RDW 14.6 % (11.6-15.6); WHITE BLOOD COUNT 2.6 K/mm3 (4.0-10.0)
[2022-08-13 10:18] LABS: BILIRUBIN,TOTAL 1.2 mg/dL (0.2-1); BLOOD UREA NITROGEN 22.1 mg/dL (7-18); CALCIUM 8.2 mg/dL (8.5-10.1); CREATININE 1.2 mg/dL (0.55-1.3)
[2022-08-13 20:41] VITALS: RESP 18
[2022-08-13] MEDS: ATORVASTATIN CA 10 MG TABLET (FP) PO SCH ×2 (22:00)
[2022-08-14] MEDS: SUCRALFATE 1 GM TABLET (FP) PO SCH ×2 (06:31→17:12)
[2022-08-14] MEDS: HEPARIN NA (PORCINE) 5,000 UNITS/ML 1ML VIAL SQ SCH ×2 (09:35→21:26)
[2022-08-14] MEDS: SPIRONOLACTONE 25 MG TABLET PO SCH (09:36)
[2022-08-14] MEDS: PARoxetine HCL 10 MG TABLET PO SCH (09:36)
[2022-08-14] MEDS: PANTOPRAZOLE 40 MG TABLET PO SCH (09:36)
[2022-08-14] MEDS ORDERED: FUROSEMIDE 20 MG TABLET (FP) PO SCH ×3 (10:00)
[2022-08-14] MEDS ORDERED: IRON SUCROSE INJECTION 200 MG in SODIUM CHLORIDE 90 ML IVPB ONE (12:54)
[2022-08-14] MEDS: ATORVASTATIN CA 10 MG TABLET (FP) PO SCH (21:27)
[2022-08-15] MEDS: SUCRALFATE 1 GM TABLET (FP) PO SCH (06:16)
[2022-08-15 06:47] VITALS: PULSE 62
[2022-08-15] MEDS ORDERED: FUROSEMIDE 40 MG TABLET (FP) PO SCH (07:00)
[2022-08-15 10:46] VITALS: BP 139/68; TEMP 98.3
[2022-08-15] MEDS: PANTOPRAZOLE 40 MG TABLET PO SCH (11:13)
[2022-08-15] MEDS: SPIRONOLACTONE 25 MG TABLET PO SCH (11:13)
[2022-08-15] MEDS: HEPARIN NA (PORCINE) 5,000 UNITS/ML 1ML VIAL SQ SCH (11:13)
[2022-08-15] MEDS: PARoxetine HCL 10 MG TABLET PO SCH (11:13)
== END 2022-08-15 15:28 | disposition home or self-care (01) | DRG 392 ==
LOC: JER 09:40 → JERBED 15:51 → J4W 08-13 14:56 → OBSVTOIN 08-14 10:39
PROVIDERS: ADMIT Internal Medicine; ATTEND Internal Medicine
DX: K52.9 Noninfective gastroenteritis and colitis, unspecified (principal); K76.6 Portal hypertension; R18.8 Other ascites; I85.00 Esophageal varices without bleeding; J90 Pleural effusion, not elsewhere classified; E78.5 Hyperlipidemia, unspecified; K74.60 Unspecified cirrhosis of liver; K75.81 Nonalcoholic steatohepatitis (NASH); I08.3 Combined rheumatic disorders of mitral, aortic and tricuspid valves; I11.0 Hypertensive heart disease with heart failure; D50.9 Iron deficiency anemia, unspecified; I50.9 Heart failure, unspecified; F41.9 Anxiety disorder, unspecified; W01.0XXA Fall on same level from slipping, tripping and stumbling without subsequent striking against object, initial encounter; Y92.098 Other place in other non-institutional residence as the place of occurrence of the external cause; Z87.11 Personal history of peptic ulcer disease
CPT/HCPCS: 0241U-QW; 36415; 70450-TC; 71046-TC-FY; 72125-TC; 72170-TC-FY; 74177-TC; 80053; 80061; 81003; 82550; 82607; 82728; 82746; 83036; 83540; 83550; 83735; 83880; 84443; 84484; 85025; 85610; 85651; 85730; 86140; 87045; 87046; 87209; 93005; 93010; 93306-TC; 93880-TC; 99285-25; G0378; J1644; J1756; Q9967

== ENCOUNTER → 2023-07-24 | Day surgery (SDC) | payer OTHER, MEDICARE | END | disposition home or self-care (01) | LOC: JRADUS-SUR 08:34 | PROVIDERS: ATTEND Registered Nurse | PROC: 0H9U3ZX Drainage of Left Breast, Percutaneous Approach, Diagnostic (ICD-10-PCS; principal; 2023-07-24) | DX: D24.2 Benign neoplasm of left breast (principal) | CPT/HCPCS: 19083; 87899; A4648 ==

== ENCOUNTER 2023-11-22 08:02 | Day surgery (SDC) | payer OTHER, MEDICARE ==
[2023-11-22 13:31] LABS: BASO % 0.8 % (0-2.0); EOS % 2.5 % (0-4.5); HEMATOCRIT 29.1 % (32.4-45.2); HEMOGLOBIN 9.2 GM/dL (10.7-15.3); LYMPH % 25.5 % (8-40); MCH 23.8 pg (25.7-33.7); MCHC 31.7 g/dl (32.0-36.0); MEAN CELL VOLUME 75.1 fl (80-96); MEAN PLT VOLUME 8.9 fl (7.5-11.1); NEUT % 59.2 % (42.8-82.8); PLATELET COUNT 58 10^3/uL (134-434); RBC 3.88 M/mm3 (3.60-5.2); RDW 18.7 % (11.6-15.6); WHITE BLOOD COUNT 3.7 K/mm3 (4.0-10.0)
[2023-11-22 18:01] VITALS: BP 143/47; PULSE 66; RESP 18; TEMP 98.2
== END 2023-11-22 14:40 | disposition home or self-care (01) ==
LOC: J7W 08:02 → JONCBLOOD 08:02
PROVIDERS: ATTEND Internal Medicine Hematology & Oncology
PROC: 30233R1 Transfusion of Nonautologous Platelets into Peripheral Vein, Percutaneous Approach (ICD-10-PCS; principal; 2023-11-22)
DX: D69.6 Thrombocytopenia, unspecified (principal)
CPT/HCPCS: 36415; 36430; 85025; P9034

== ENCOUNTER 2024-04-26 13:43 | Observation (INO) | payer OTHER, MEDICARE ==
[2024-04-26 13:53] VITALS: BMI 24.3
[2024-04-26 16:25] LABS: BASO % 0.5 % (0-2.0); EOS % 2.4 % (0-4.5); HEMATOCRIT 29.1 % (32.4-45.2); HEMOGLOBIN 9.2 GM/dL (10.7-15.3); LYMPH % 22.4 % (8-40); MCH 22.6 pg (25.7-33.7); MCHC 31.6 g/dl (32.0-36.0); MEAN CELL VOLUME 71.5 fl (80-96); MEAN PLT VOLUME 8.3 fl (7.5-11.1); MONO % 8.8 % (3.8-10.2); NEUT % 65.9 % (42.8-82.8); PLATELET COUNT 48 10^3/uL (134-434); RBC 4.07 M/mm3 (3.60-5.2); RDW 17.5 % (11.6-15.6); WHITE BLOOD COUNT 3.1 K/mm3 (4.0-10.0)
[2024-04-26 16:29] LABS: INR 1.32 (0.83-1.09); PROTHROMBIN TIME (PATIENT) 14.8 SEC (9.7-13.0)
[2024-04-26 16:32] LABS: ACTIVATED PTT 30.9 SECONDS (25.2-36.5)
[2024-04-26 16:41] LABS: POTASSIUM 3.8 mmol/L (3.5-5.1)
[2024-04-26 16:42] LABS: CALCIUM 8.7 mg/dL (8.5-10.1)
[2024-04-26 16:43] LABS: ALBUMIN 3.5 g/dl (3.4-5.0); BLOOD UREA NITROGEN 30.7 mg/dL (7-18)
[2024-04-26 16:46] LABS: CREATININE 1.1 mg/dL (0.55-1.3)
[2024-04-26 16:47] LABS: BILIRUBIN,TOTAL 1.1 mg/dL (0.2-1)
[2024-04-26 16:48] LABS: TOT PROT 6.6 g/dl (6.4-8.2)
[2024-04-26] MEDS: LIDOCAINE HCL 2% (50ML VIAL) SQ ONE (17:00)
[2024-04-26] MEDS ORDERED: LIDOCAINE HCL 2% (20ML MULTI-DOSE VIAL) ONE (17:03)
[2024-04-26] MEDS ORDERED: ACETAMINOPHEN 325 MG TABLET (FP) PO PRN (21:52)
[2024-04-26] MEDS ORDERED: ATORVASTATIN CA 40 MG TABLET (FP) ONE (22:03)
[2024-04-26] MEDS ORDERED: ATORVASTATIN CA 10 MG TABLET (FP) ONE (22:03)
[2024-04-26] MEDS ORDERED: CARVEDILOL 3.125 MG TABLET (FP) ONE (22:03)
[2024-04-26] MEDS: ATORVASTATIN CA 10 MG TABLET (FP) PO SCH (22:20)
[2024-04-26] MEDS: CARVEDILOL 3.125 MG TABLET (FP) PO SCH (22:20)
[2024-04-26] MEDS ORDERED: TETANUS AND DIPHTHERIA TOXOID 0.5 ML DISP.SYRIN IM ONE (22:39)
[2024-04-27] MEDS: TETANUS, DIPHTHERIA TOX,ADULT 0.5 ML VIAL IM ONE (00:35)
[2024-04-27 08:59] LABS: HEMATOCRIT 27.2 % (32.4-45.2); HEMOGLOBIN 8.4 GM/dL (10.7-15.3); MCH 22.6 pg (25.7-33.7); MEAN CELL VOLUME 72.7 fl (80-96); MEAN PLT VOLUME 8.7 fl (7.5-11.1); PLATELET COUNT 42 10^3/uL (134-434); RBC 3.74 M/mm3 (3.60-5.2); RDW 17.3 % (11.6-15.6); WHITE BLOOD COUNT 2.9 K/mm3 (4.0-10.0)
[2024-04-27 09:09] LABS: POTASSIUM 3.8 mmol/L (3.5-5.1)
[2024-04-27 09:15] LABS: BLOOD UREA NITROGEN 25.8 mg/dL (7-18); CALCIUM 8.8 mg/dL (8.5-10.1); MAGNESIUM 1.8 mg/dL (1.8-2.4)
[2024-04-27 09:19] LABS: BILIRUBIN,TOTAL 1.6 mg/dL (0.2-1); TOT PROT 5.8 g/dl (6.4-8.2)
[2024-04-27] MEDS ORDERED: PARoxetine HCL 10 MG TABLET ONE (11:57)
[2024-04-27] MEDS ORDERED: SPIRONOLACTONE 25 MG TABLET ONE (11:58)
[2024-04-27] MEDS: FUROSEMIDE 20 MG TABLET (FP) PO SCH (12:05)
[2024-04-27] MEDS: PANTOPRAZOLE 40 MG TABLET PO SCH (12:05)
[2024-04-27] MEDS: SPIRONOLACTONE 25 MG TABLET PO SCH (12:05)
[2024-04-27] MEDS: POTASSIUM CHLORIDE TABS 20 MEQ TABLET.ER (FP) PO SCH (12:05)
[2024-04-27] MEDS: PARoxetine HCL 10 MG TABLET PO SCH (12:05)
[2024-04-27 12:11] VITALS: RESP 17
[2024-04-27 15:20] VITALS: BP 119/58; PULSE 69; TEMP 98
== END 2024-04-27 17:03 | disposition home health service (06) ==
LOC: JER 13:43 → JERBED 19:36
PROVIDERS: ADMIT Internal Medicine; ATTEND Nurse Practitioner Acute Care
PROC: 3E023GC Introduction of Other Therapeutic Substance into Muscle, Percutaneous Approach (ICD-10-PCS; principal; 2024-04-26)
PROC: 3E0234Z Introduction of Serum, Toxoid and Vaccine into Muscle, Percutaneous Approach (ICD-10-PCS; 2024-04-26)
PROC: 0HQ1XZZ Repair Face Skin, External Approach (ICD-10-PCS; 2024-04-26)
DX: S02.2XXA Fracture of nasal bones, initial encounter for closed fracture (principal); W18.39XA Other fall on same level, initial encounter; Y93.89 Activity, other specified; Y92.89 Other specified places as the place of occurrence of the external cause; R71.0 Precipitous drop in hematocrit; R29.6 Repeated falls; I35.0 Nonrheumatic aortic (valve) stenosis; I11.0 Hypertensive heart disease with heart failure; K74.69 Other cirrhosis of liver; R01.1 Cardiac murmur, unspecified; K75.81 Nonalcoholic steatohepatitis (NASH); D69.6 Thrombocytopenia, unspecified; K25.9 Gastric ulcer, unspecified as acute or chronic, without hemorrhage or perforation; Z23 Encounter for immunization
CPT/HCPCS: 12011-25; 36415; 70450-TC; 70486-TC; 72125-TC; 80053; 83735; 84100; 85025; 85027; 85610; 85730; 90471; 93005; 93010; 96372; 99285-25; G0378

== ENCOUNTER 2024-05-02 10:43 | Emergency (ER) | payer OTHER, MEDICARE ==
[2024-05-02 11:28] VITALS: BP 143/56; PULSE 67; RESP 16; TEMP 97.7; BMI 24.7
== END 2024-05-02 11:40 | disposition home or self-care (01) ==
LOC: JERFT 10:43
DX: Z48.02 Encounter for removal of sutures (principal)
CPT/HCPCS: 99281-25

== ENCOUNTER 2024-07-10 08:00 | Day surgery (SDC) | payer OTHER, MEDICARE ==
[2024-07-10] MEDS: IRON SUCROSE INJECTION 100 MG in SODIUM CHLORIDE 100 ML IVPB ONE (09:20)
[2024-07-10 15:38] VITALS: RESP 20
[2024-07-13 08:01] VITALS: BP 132/49; PULSE 61; TEMP 97.6
== END 2024-07-10 10:15 | disposition home or self-care (01) ==
LOC: JONCNONCHE 08:00 → J7W 08:01 → JONCNONCHE 10:15
PROVIDERS: ATTEND Internal Medicine Hematology & Oncology
PROC: 3E013GC Introduction of Other Therapeutic Substance into Subcutaneous Tissue, Percutaneous Approach (ICD-10-PCS; principal; 2024-07-10)
DX: E61.1 Iron deficiency (principal)
CPT/HCPCS: 96365; J1756

== ENCOUNTER 2024-07-17 08:37 | Day surgery (SDC) | payer OTHER, MEDICARE ==
[2024-07-17] MEDS: IRON SUCROSE INJECTION 100 MG in SODIUM CHLORIDE 100 ML IVPB ONE (08:31)
[2024-07-17 12:14] VITALS: BP 136/56; PULSE 63; RESP 18; TEMP 98.2
== END 2024-07-17 09:45 | disposition home or self-care (01) ==
LOC: J7W 08:37 → JONCCHEMO 08:37
PROVIDERS: ATTEND Internal Medicine Hematology & Oncology
PROC: 3E033GC Introduction of Other Therapeutic Substance into Peripheral Vein, Percutaneous Approach (ICD-10-PCS; principal; 2024-07-17)
DX: E61.1 Iron deficiency (principal)
CPT/HCPCS: 96365; J1756

== ENCOUNTER 2025-04-07 12:50 | Emergency (ER) | payer OTHER, MEDICARE ==
[2025-04-07 13:20] VITALS: RESP 18; BMI 23.8
[2025-04-07 14:14] LABS: BASOPHILS # 0.05 x10^3/uL (0.01-0.08); EOSINOPHILS # 0.31 x10^3/uL (0.04-0.36); MEAN CELL VOLUME 90.4 fl (79.4-94.8); RDW 15.9 % (12.5-17.0)
[2025-04-07 14:16] LABS: ABSOLUTE IMMATURE GRANULOCYTES 0.04 x10^3/uL (0.0-0.031); EOSINOPHIL % 4.6 % (0.7-5.8); IMMATURE PLATELET FRACTION # 4.10 x10^3/uL; MCHC 30.8 g/dl (32.2-35.5); MEAN PLT VOLUME 11.7 fl (9.4-12.3); MONOCYTE # 1.08 x10^3/uL (0.24-0.86); MONOCYTE % 16.0 % (4.7-12.5)
[2025-04-07 14:31] LABS: EPI CELLS 7 /uL (0-25.1); HYALINE CASTS 0 /uL (0-3.1); URINE APPEARANCE CLEAR; URINE BACTERIA 71 /uL (0-1359); URINE BILIRUBIN NEGATIVE (NEGATIVE); URINE COLOR YELLOW; URINE GLUCOSE (UA) NEGATIVE (NEGATIVE); URINE KETONE NEGATIVE (NEGATIVE); URINE LEUK ESTERASE 2+ (NEGATIVE); URINE NITRITE NEGATIVE (NEGATIVE); URINE PROTEIN NEGATIVE (NEGATIVE); URINE RBC 9 /uL (0-23.9); URINE UROBILINOGEN 1.0 mg/dL (0.2-1.0); URINE WBC 33 /uL (0-25.8)
[2025-04-07 14:56] LABS: GLUCOSE,RANDOM 103.0 mg/dL (74-106)
[2025-04-07 14:57] LABS: TOT PROT 5.5 g/dl (6.4-8.2)
[2025-04-07 14:58] LABS: CO2 21.0 mmol/L (21-32)
[2025-04-07 15:00] LABS: ALK PHOS 109.0 U/L (40-150)
[2025-04-07 15:02] LABS: SGOT/AST 55.0 U/L (5-34); SGPT/ALT 32.0 U/L (0-55)
[2025-04-07 15:03] LABS: CREATININE 0.96 mg/dL (0.55-1.3)
[2025-04-07 23:56] VITALS: BP 112/58; PULSE 86; TEMP 98.6
== END 2025-04-08 00:08 ==
LOC: JER 12:50
DX: R79.9 Abnormal finding of blood chemistry, unspecified (principal); R94.31 Abnormal electrocardiogram [ECG] [EKG]
CPT/HCPCS: 71045-TC-FY; 80053; 81003; 83735; 84484; 85025; 86850; 86900; 86901; 87086; 93005; 93010; 99285-25